=== PATIENT | female | born 1960 | race African-American/Black ===

== ENCOUNTER 2018-10-26 13:11 | Emergency (ER) | payer OTHER ==
[~2018-10-26] VITALS: Ht 170.2 cm; Wt 72.6 kg
[2018-10-26 19:06] VITALS: BP 198/105
[2018-10-26] MEDS ORDERED: cloNIDine HCL 0.1 MG TAB PO ONE (19:30)
[2018-10-26 19:42] LABS: Basophils # (auto) 0.1 uL; Basophils % (auto) 1.5 % (0.0-2.0); Eosinophils # (auto) 0.1 uL; Eosinophils % (auto) 1.4 % (0.0-7.0); Hematocrit 45.8 % (36.0-46.0); Hemoglobin 15.3 g/dL (12.2-16.2); Lymphocytes # (auto) 2.5 uL; Lymphocytes % (auto) 42.3 % (10.0-50.0); Mean Corpuscular Hemoglobin 30.3 pg (28.0-32.0); Mean Corpuscular Hgb Conc. 33.4 g/dL (32.0-36.0); Mean Corpuscular Volume 90.6 fL (80.0-100.0); Monocytes # (auto) 0.3 uL; Monocytes % (auto) 5.6 % (0.0-12.0); Neutrophils # (auto) 2.9 uL; Neutrophils % (auto) 49.2 % (37.0-80.0); Nucleated Red Blood Cells % 0.1 %; Platelet Count (auto) 209 10^3/uL (140-450); Red Blood Cells 5.06 10^6/uL (4.0-5.20)
[2018-10-26 19:50] LABS: Albumin 4.3 g/dL (3.4-5.0); Calcium 9.4 mg/dL (8.5-10.1); Potassium 3.4 mmol/L (3.5-5.1)
[2018-10-26 19:54] LABS: BUN/Creatinine Ratio 18.5; Bilirubin, Total 0.5 mg/dL (0.2-1.0)
[2018-10-26] MEDS ORDERED: diphenhdrAMINE HCL 25 MG CAP PO ONE (20:00)
[2018-10-26] MEDS ORDERED: hydrALAZINE HCL 25 MG TAB PO ONE (22:00)
[2018-10-26] MEDS ORDERED: IBUPROFEN 600 MG TAB PO ONE (22:30)
== END 2018-10-26 22:11 | disposition home or self-care (01) ==
LOC: ER 13:11
DX: I10 Essential (primary) hypertension (principal); R51 Headache; I63.9 Cerebral infarction, unspecified; G81.94 Hemiplegia, unspecified affecting left nondominant side; E78.5 Hyperlipidemia, unspecified
CPT/HCPCS: 36415; 70450; 71045; 80053; 83735; 84484; 85025; 93005; 94761

== ENCOUNTER 2021-06-30 19:31 | Inpatient (IN) | payer OTHER ==
[~2021-06-30] VITALS: Ht 33 cm; Wt 0.5 kg
[2021-06-30] MEDS ORDERED: methylPREDNISolone SOD SUCC 125 MG/2 ML VL IV ONE (20:15)
[2021-06-30] MEDS ORDERED: TEMAZEPAM 15 MG CAP PO PRN (23:30)
[2021-06-30] MEDS ORDERED: ACETAMINOPHEN 325 MG TAB PO PRN (23:30)
[2021-06-30] MEDS ORDERED: DOCUSATE SOD 100 MG CAP PO PRN (23:30)
[2021-06-30] MEDS ORDERED: ONDANSETRON HCL 4 MG/2 ML VIAL IV PRN (23:30)
[2021-06-30] MEDS ORDERED: MORPHINE SULFATE 4 MG/ML SYR/VIAL IV PRN (23:30)
[2021-06-30] MEDS ORDERED: DEXTROSE (50%) 50ML SYRG IV PRN (23:30)
[2021-06-30] MEDS ORDERED: hydrALAZINE HCL 20 MG/ML VL IV PRN (23:30)
[2021-06-30 23:58] LABS: Basophils # (auto) 0.1 10 ^3/uL (0-0.2); Basophils % (auto) 0.9 % (0.0-2.0); Eosinophils # (auto) 0 10 ^3/uL (0-0.8); Eosinophils % (auto) 0.1 % (0.0-7.0); Hematocrit 39.2 % (36.0-46.0); Hemoglobin 13.1 g/dL (12.2-16.2); Lymphocytes # (auto) 0.9 10 ^3/uL (0.4-5.4); Lymphocytes % (auto) 10.1 % (10.0-50.0); Mean Corpuscular Hemoglobin 29.1 pg (28.0-32.0); Mean Corpuscular Hgb Conc. 33.3 g/dL (32.0-36.0); Mean Corpuscular Volume 87.1 fL (80.0-100.0); Monocytes # (auto) 0.2 10 ^3/uL (0-1.3); Monocytes % (auto) 1.9 % (0.0-12.0); Neutrophils # (auto) 7.4 10 ^3/uL (1.6-8.6); Nucleated Red Blood Cells % 0.2 %; White Blood Cell 8.5 10^3/uL (4.4-10.8)
[2021-07-01 00:15] LABS: INR 1.01 (0.9-1.15); Partial Thromboplastin Time 24.8 sec (23.6-33.0)
[2021-07-01 00:17] LABS: Albumin 3.2 g/dL (3.4-5.0); Calcium 9.1 mg/dL (8.5-10.1); Magnesium 3.2 mg/dL (1.6-2.6)
[2021-07-01 00:23] LABS: Bilirubin, Total 0.5 mg/dL (0.2-1.0); Total Protein 8.2 g/dL (6.4-8.2)
[2021-07-01] MEDS ORDERED: NITROGLYCERIN 0.4 MG SL TAB SL PRN (01:00)
[2021-07-01] MEDS ORDERED: MORPHINE SULFATE INJECTION 2 MG/ML SYRG IV PRN (01:00)
[2021-07-01] MEDS: HYDROcodone-ACET 5/325MG TAB PO PRN ×2 (03:15→15:46)
[2021-07-01 04:30] VITALS: BP 138/67
[2021-07-01] MEDS: SODIUM CHLOR 0.9% PF (SALINE LOCK) 10ML VIAL/SYR IV SCH ×2 (06:00→13:03)
[2021-07-01] MEDS: HEPARIN SODIUM (PORCINE) 5000 UNITS/ML 1ML VIAL SC SCH ×2 (06:54→14:00)
[2021-07-01] MEDS: ACCU-CHEK COMFORT CURVE STRIP VI SCH ×2 (06:55→13:03)
[2021-07-01] MEDS: InsuLIN REG 1unit/0.01ml Soln (100units/ml) SC SCH ×2 (07:00→13:03)
[2021-07-01 09:49] LABS: Basophils # (auto) 0 10 ^3/uL (0-0.2); Basophils % (auto) 0.2 % (0.0-2.0); Eosinophils # (auto) 0 10 ^3/uL (0-0.8); Eosinophils % (auto) 0.1 % (0.0-7.0); Hematocrit 38.6 % (36.0-46.0); Hemoglobin 12.7 g/dL (12.2-16.2); Lymphocytes # (auto) 0.9 10 ^3/uL (0.4-5.4); Lymphocytes % (auto) 8.3 % (10.0-50.0); Mean Corpuscular Hemoglobin 28.7 pg (28.0-32.0); Mean Corpuscular Hgb Conc. 32.8 g/dL (32.0-36.0); Mean Corpuscular Volume 87.5 fL (80.0-100.0); Monocytes # (auto) 0.1 10 ^3/uL (0-1.3); Monocytes % (auto) 0.6 % (0.0-12.0); Neutrophils # (auto) 9.9 10 ^3/uL (1.6-8.6); Neutrophils % (auto) 90.8 % (37.0-80.0); Nucleated Red Blood Cells % 0.1 %; Red Blood Cells 4.41 10^6/uL (4.0-5.20); Red Cell Distribution Width 14.1 % (11.8-14.3); White Blood Cell 10.9 10^3/uL (4.4-10.8)
[2021-07-01] MEDS ORDERED: ASCORBIC ACID 500 MG TAB PO SCH (10:00)
[2021-07-01] MEDS ORDERED: ASPirin 81 mg TAB PO SCH (10:00)
[2021-07-01] MEDS ORDERED: FAMOTIDINE (10MG/ML) 2ML VL IV SCH (10:00)
[2021-07-01] MEDS ORDERED: ZINC SULFATE 220mg CAP or TAB PO SCH (10:00)
[2021-07-01] MEDS ORDERED: MULTIPLE VITAMIN TAB PO SCH (10:00)
[2021-07-01 11:22] LABS: Calcium 8.4 mg/dL (8.5-10.1); Potassium 4.2 mmol/L (3.5-5.1)
[2021-07-01 11:30] LABS: BUN/Creatinine Ratio 21.4; Bilirubin, Total 0.4 mg/dL (0.2-1.0); Total Protein 7.2 g/dL (6.4-8.2)
[2021-07-01] MEDS ORDERED: AZITHROMYCIN 250 MG TAB PO ONE (13:00)
[2021-07-01] MEDS ORDERED: FUROSEMIDE 40 MG/4 ML VIAL IV ONE (13:00)
[2021-07-01 14:26] VITALS: BP 140/57
[2021-07-01] MEDS ORDERED: InsuLIN REG 1unit/0.01ml Soln (100units/ml) SC SCH (22:00)
[2021-07-01] MEDS ORDERED: ATORVASTATIN 20 MG TAB PO SCH (22:00)
== END 2021-07-01 17:36 | disposition home or self-care (01) | DRG 145 ==
LOC: ER 19:31 → EDBD 19:31 → TELE 07-01 00:57 → WEST WING 07-01 04:15 → TELE-WESTW 07-01 05:41
PROVIDERS: ADMIT Nurse Practitioner Family; ATTEND Nurse Practitioner Family
DX: R09.1 Pleurisy (principal); E83.41 Hypermagnesemia; E11.65 Type 2 diabetes mellitus with hyperglycemia; E78.5 Hyperlipidemia, unspecified; I10 Essential (primary) hypertension; R79.89 Other specified abnormal findings of blood chemistry; Z20.822 Contact with and (suspected) exposure to COVID-19; I44.7 Left bundle-branch block, unspecified; J20.9 Acute bronchitis, unspecified; Z82.49 Family history of ischemic heart disease and other diseases of the circulatory system; I25.2 Old myocardial infarction; Z82.5 Family history of asthma and other chronic lower respiratory diseases; Z83.3 Family history of diabetes mellitus; Z86.73 Personal history of transient ischemic attack (TIA), and cerebral infarction without residual deficits; R77.8 Other specified abnormalities of plasma proteins
CPT/HCPCS: 36415; 71045; 80053; 80061; 82962; 83036; 83605; 83735; 83880; 84484; 85025; 85379; 85610; 85730; 87040; 87426; 93005; 96372; 96374; 96375; G0378; J1815; J3490

== ENCOUNTER 2021-07-14 12:58 | Emergency (ER) | payer OTHER ==
[~2021-07-14] VITALS: Ht 170.2 cm; Wt 66.7 kg
[2021-07-14 15:04] VITALS: BP 153/78
[2021-07-14] MEDS ORDERED: traMADol HCL 50 MG TAB PO ONE (17:00)
== END 2021-07-14 16:50 | disposition home or self-care (01) ==
LOC: EDBD 12:58 → ER 12:58 → EDSEX 12:58 → ER 16:50
DX: J20.9 Acute bronchitis, unspecified (principal); I10 Essential (primary) hypertension; E11.9 Type 2 diabetes mellitus without complications; E78.5 Hyperlipidemia, unspecified; F17.210 Nicotine dependence, cigarettes, uncomplicated; Z86.73 Personal history of transient ischemic attack (TIA), and cerebral infarction without residual deficits
CPT/HCPCS: 71045

== ENCOUNTER 2023-03-22 13:39 | Inpatient (IN) | payer OTHER ==
[~2023-03-22] VITALS: Ht 170.2 cm; Wt 65.6 kg
[2023-03-22] MEDS ORDERED: ACETAMINOPHEN 325 MG TAB PO ONE (14:45)
[2023-03-22] MEDS ORDERED: ASPirin 81 mg TAB PO ONE (14:45)
[2023-03-22] MEDS ORDERED: ONDANSETRON HCL 4 MG/2 ML VIAL IV ONE (14:45)
[2023-03-22] MEDS ORDERED: SODIUM CHLORIDE 0.9% 1,000 ML IV ONE (14:45)
[2023-03-22] MEDS ORDERED: PANTOPRAZOLE 40 MG/10 ML VIAL INJ IV ONE (14:45)
[2023-03-22 15:31] LABS: Basophils # (auto) 0.1 10 ^3/uL (0-0.2); Basophils % (auto) 1.2 % (0.0-2.0); Eosinophils # (auto) 0 10 ^3/uL (0-0.8); Eosinophils % (auto) 0.6 % (0.0-7.0); Hematocrit 40.7 % (36.0-46.0); Hemoglobin 13.5 g/dL (12.2-16.2); Lymphocytes # (auto) 2.4 10 ^3/uL (0.4-5.4); Lymphocytes % (auto) 31.8 % (10.0-50.0); Mean Corpuscular Hemoglobin 28.8 pg (28.0-32.0); Mean Corpuscular Hgb Conc. 33.3 g/dL (32.0-36.0); Mean Corpuscular Volume 86.6 fL (80.0-100.0); Monocytes # (auto) 0.5 10 ^3/uL (0-1.3); Neutrophils # (auto) 4.4 10 ^3/uL (1.6-8.6); Neutrophils % (auto) 59.4 % (37.0-80.0); Red Blood Cells 4.69 10^6/uL (4.0-5.20); Red Cell Distribution Width 14.7 % (11.8-14.3); White Blood Cell 7.4 10^3/uL (4.4-10.8)
[2023-03-22 15:40] LABS: Alanine Aminotransferase 19 U/L (7-40); Albumin 4.6 g/dL (3.2-4.8); Alkaline Phosphatase 88 U/L (46-116); Anion Gap 7.9 (5-15); Aspartate Aminotransferase 24 U/L (13-40); BUN/Creatinine Ratio 7.8 (10.0-20.0); Bilirubin, Total 0.5 mg/dL (0.2-1.0); Blood Alcohol < 3.0 mg/dL (<10); Blood Urea Nitrogen 11 mg/dL (9-23); Calcium 9.5 mg/dL (8.7-10.4); Carbon Dioxide 21.1 mmol/L (20-30); Chloride 109 mmol/L (98-107); Glucose 143 mg/dL (74-106); Magnesium 2.2 mg/dL (1.6-2.6); Potassium 3.3 mmol/L (3.5-5.1); Sodium 138 mmol/L (136-145); Total Protein 7.6 g/dL (5.7-8.2)
[2023-03-22 15:45] LABS: INR 1.05 (0.9-1.15); Partial Thromboplastin Time 26.9 SEC (24.5-34.5)
[2023-03-22 17:44] VITALS: PULSE 20; RESP 20; O2SAT 96
[2023-03-22] MEDS ORDERED: FUROSEMIDE 40 MG/4 ML VIAL IV ONE (18:00)
[2023-03-22] MEDS ORDERED: POTASSIUM CHL 20 Meq TABLET PO ONE (18:00)
[2023-03-22] MEDS ORDERED: MAGNESIUM OXIDE 400 MG TAB PO ONE (18:00)
[2023-03-22] MEDS ORDERED: NITROGLYCERIN 0.4 MG SL TAB SL PRN (19:30)
[2023-03-22] MEDS ORDERED: ONDANSETRON HCL 4 MG/2 ML VIAL IV PRN (19:30)
[2023-03-22] MEDS ORDERED: ACETAMINOPHEN 325 MG TAB PO PRN (19:30)
[2023-03-22] MEDS ORDERED: TEMAZEPAM 15 MG CAP PO PRN (19:30)
[2023-03-22 19:45] LABS: Urine Bacteria FEW /hpf (None Seen); Urine Blood 1+ /uL (Negative); Urine Clarity HAZY (Clear); Urine Color Yellow (Yellow); Urine Hyaline Cast FEW /lpf (0 - 2); Urine Mucus FEW (None Seen); Urine Protein, UAD 3+ (Negative); Urine Specific Gravity 1.021 (1.001-1.035); Urine Urobilinogen Normal (Negative); Urine WBC 5 /hpf (0 - 5); Urine pH 6.5 (5.0-8.0)
[2023-03-22 19:51] LABS: Amphetamine Screen, Urine Neg (NEGATIVE); Barbiturate Scree,Urine Neg (NEGATIVE); Benzodiazephine Screen, Urine Neg (NEGATIVE)
[2023-03-22 19:52] LABS: Cannabinoid Screen, Urine Pos (NEGATIVE); Cocaine Screen, Urine Neg (NEGATIVE); Opiate Scree,Urine Neg (NEGATIVE); Phencyclidine Screen, Urine Neg (NEGATIVE)
[2023-03-22 20:25] VITALS: PULSE 49; RESP 19; O2SAT 97
[2023-03-22] MEDS: SODIUM CHLORIDE 0.9% 1,000 ML IV SCH (23:00)
[2023-03-23] VITALS (7 sets, daily range): BP systolic 100–117; BP diastolic 51–60; PULSE 46–64; RESP 16–20; TEMP 97.4–98.3; O2SAT 90–98
[2023-03-23] MEDS ORDERED: NITROGLYCERIN 0.4MG/HR TOPICAL PATCH TD ONE (00:45)
[2023-03-23] MEDS: SODIUM CHLORIDE 0.9% 1,000 ML IV SCH ×2 (05:21→13:30)
[2023-03-23 05:26] LABS: Basophils # (auto) 0.1 10 ^3/uL (0-0.2); Basophils % (auto) 2.5 % (0.0-2.0); Eosinophils # (auto) 0 10 ^3/uL (0-0.8); Eosinophils % (auto) 0.7 % (0.0-7.0); Hematocrit 38.5 % (36.0-46.0); Hemoglobin 12.6 g/dL (12.2-16.2); Lymphocytes # (auto) 2.1 10 ^3/uL (0.4-5.4); Lymphocytes % (auto) 35.9 % (10.0-50.0); Mean Corpuscular Hemoglobin 28.4 pg (28.0-32.0); Mean Corpuscular Hgb Conc. 32.7 g/dL (32.0-36.0); Mean Corpuscular Volume 86.7 fL (80.0-100.0); Monocytes # (auto) 0.3 10 ^3/uL (0-1.3); Monocytes % (auto) 5.9 % (0.0-12.0); Neutrophils # (auto) 3.2 10 ^3/uL (1.6-8.6); Nucleated Red Blood Cells % 0.1 %; Red Blood Cells 4.44 10^6/uL (4.0-5.20); Red Cell Distribution Width 14.7 % (11.8-14.3); White Blood Cell 5.8 10^3/uL (4.4-10.8)
[2023-03-23 08:26] LABS: Alanine Aminotransferase 16 U/L (7-40); Alkaline Phosphatase 79 U/L (46-116); Anion Gap 9.6 (5-15); Carbon Dioxide 20.4 mmol/L (20-30); Chloride 110 mmol/L (98-107); Potassium 3.8 mmol/L (3.5-5.1); Sodium 140 mmol/L (136-145)
[2023-03-23 08:29] LABS: Glucose 137 mg/dL (74-106)
[2023-03-23 08:30] LABS: BUN/Creatinine Ratio 8.6 (10.0-20.0); Blood Urea Nitrogen 12 mg/dL (9-23)
[2023-03-23 08:31] LABS: Albumin 4.4 g/dL (3.2-4.8); Aspartate Aminotransferase 20 U/L (13-40)
[2023-03-23 08:32] LABS: Bilirubin, Total 0.6 mg/dL (0.2-1.0); Total Protein 7.2 g/dL (5.7-8.2)
[2023-03-23] MEDS ORDERED: ENOXAPARIN SOD 40 MG/0.4 ML SYRINGE SC SCH (10:00)
[2023-03-23] MEDS: HYDROcodone-ACET 5/325MG TAB PO PRN ×2 (10:27→19:25)
[2023-03-23] MEDS: DOCUSATE SOD 100 MG CAP PO PRN (10:31)
[2023-03-23] MEDS ORDERED: FUROSEMIDE 40 MG/4 ML VIAL IV ONE (13:30)
[2023-03-23] MEDS ORDERED: ATROPINE SULF 1 MG/10ml SYR IV PRN (14:45)
[2023-03-23 15:52] LABS: Triglycerides 112 mg/dL (< 150)
[2023-03-23 15:53] LABS: LDL Cholesterol 58 mg/dL (< 100)
[2023-03-23 15:54] LABS: Cholesterol 160 mg/dL (< 200); HDL Cholesterol 75 mg/dL (40-59)
[2023-03-23] MEDS: ATROPINE SULF 1 MG/10ml SYR IV PRN (16:46)
[2023-03-23] MEDS: ATORVASTATIN 20 MG TAB PO SCH (21:52)
[2023-03-24] VITALS (7 sets, daily range): BP systolic 140–213; BP diastolic 55–79; PULSE 47–56; RESP 18–19; TEMP 97.4–98.6; O2SAT 95–99
[2023-03-24] MEDS: ATROPINE SULF 1 MG/10ml SYR IV PRN (03:14)
[2023-03-24] MEDS: HYDROcodone-ACET 5/325MG TAB PO PRN ×4 (03:45→20:19)
[2023-03-24] MEDS: NIFEdipine 10 MG CAP PO SCH ×2 (09:24→20:17)
[2023-03-24] MEDS ORDERED: hydrALAZINE HCL 25 MG TAB PO SCH (10:00)
[2023-03-24] MEDS ORDERED: ALPRAZolam 0.5 MG TAB PO PRN (12:00)
[2023-03-24] MEDS ORDERED: diphenhdrAMINE HCL 50 MG/1 ML VL IV PRN (12:00)
[2023-03-24] MEDS: PANTOPRAZOLE 40 MG/10 ML VIAL INJ IV SCH (12:21)
[2023-03-24] MEDS: hydrALAZINE HCL 20 MG/ML VL IV PRN ×2 (12:21→17:21)
[2023-03-24] MEDS: SODIUM CHLORIDE 0.9% 1,000 ML IV SCH (13:27)
[2023-03-24] MEDS: hydrALAZINE HCL 25 MG TAB PO SCH ×2 (13:28→21:25)
[2023-03-24] MEDS: DOCUSATE SOD 100 MG CAP PO PRN (15:08)
[2023-03-24] MEDS: FUROSEMIDE 20 MG/2 ML VIAL IV SCH (17:22)
[2023-03-24] MEDS: ATORVASTATIN 20 MG TAB PO SCH (20:17)
[2023-03-24] MEDS: TRIAMCINOLONE ACET0.5% TOPICAL CRE 15GM TOP SCH (21:27)
[2023-03-24 22:44] LABS: Alanine Aminotransferase 11 U/L (7-40); Alkaline Phosphatase 76 U/L (46-116); Anion Gap 4.7 (5-15); Aspartate Aminotransferase 15 U/L (13-40); Blood Urea Nitrogen 12 mg/dL (9-23); Carbon Dioxide 25.3 mmol/L (20-30); Chloride 109 mmol/L (98-107); Glucose 167 mg/dL (74-106); Potassium 3.3 mmol/L (3.5-5.1); Sodium 139 mmol/L (136-145)
[2023-03-24 22:45] LABS: Bilirubin, Total 0.6 mg/dL (0.2-1.0); Total Protein 6.5 g/dL (5.7-8.2)
[2023-03-25] VITALS (12 sets, daily range): BP systolic 115–215; BP diastolic 50–92; PULSE 51–93; RESP 13–20; TEMP 98.1–98.4; O2SAT 93–97
[2023-03-25] MEDS: hydrALAZINE HCL 20 MG/ML VL IV PRN ×2 (04:36→11:12)
[2023-03-25] MEDS: hydrALAZINE HCL 25 MG TAB PO SCH ×3 (06:00→22:42)
[2023-03-25] MEDS ORDERED: hydrALAZINE HCL 20 MG/ML VL IV ONE (06:15)
[2023-03-25 06:34] LABS: Anion Gap 7.3 (5-15); Carbon Dioxide 22.7 mmol/L (20-30); Chloride 110 mmol/L (98-107); Potassium 3.5 mmol/L (3.5-5.1); Sodium 140 mmol/L (136-145)
[2023-03-25 06:40] LABS: BUN/Creatinine Ratio 7.1 (10.0-20.0); Blood Urea Nitrogen 8 mg/dL (9-23); Glucose 140 mg/dL (74-106); INR 0.98 (0.9-1.15); Prothrombin Time 10.3 sec (9.3-11.8)
[2023-03-25 06:52] LABS: Basophils # (auto) 0 10 ^3/uL (0-0.2); Basophils % (auto) 0.6 % (0.0-2.0); Eosinophils # (auto) 0 10 ^3/uL (0-0.8); Eosinophils % (auto) 0.4 % (0.0-7.0); Hematocrit 43.6 % (36.0-46.0); Hemoglobin 13.9 g/dL (12.2-16.2); Lymphocytes # (auto) 2.7 10 ^3/uL (0.4-5.4); Mean Corpuscular Hemoglobin 28.2 pg (28.0-32.0); Mean Corpuscular Hgb Conc. 31.9 g/dL (32.0-36.0); Mean Corpuscular Volume 88.4 fL (80.0-100.0); Monocytes # (auto) 0.5 10 ^3/uL (0-1.3); Monocytes % (auto) 7.2 % (0.0-12.0); Neutrophils # (auto) 3.9 10 ^3/uL (1.6-8.6); Neutrophils % (auto) 53.8 % (37.0-80.0); Nucleated Red Blood Cells % 0.1 %; Red Blood Cells 4.93 10^6/uL (4.0-5.20); Red Cell Distribution Width 14.9 % (11.8-14.3); White Blood Cell 7.2 10^3/uL (4.4-10.8)
[2023-03-25 06:56] LABS: Magnesium 1.8 mg/dL (1.6-2.6)
[2023-03-25] MEDS ORDERED: VANCOMYCIN 1GM/250ML 250 ML IV ONE (07:15)
[2023-03-25] MEDS ORDERED: LIDOCAINE 2%HCL (LOCAL ANESTH.) INJ 20ML MDV ONE (07:52)
[2023-03-25] MEDS ORDERED: MIDAZOLAM HCL 2MG/2ML 2ml VIAL (1mg/ml) ONE (07:59)
[2023-03-25] MEDS ORDERED: VANCOMYCIN HCL 1000 MG VL ONE (07:59)
[2023-03-25] MEDS ORDERED: fentaNYL CITRATE 100 MCG/2 ML VL ONE (07:59)
[2023-03-25] MEDS ORDERED: IODIXANOL 320MG/ML 100ML BTL IV ONE (08:00)
[2023-03-25] MEDS ORDERED: EPINEPHrine HCL 1 MG/10 ML SYRG ONE (08:46)
[2023-03-25] MEDS ORDERED: ATROPINE SULF 1 MG/10ml SYR ONE (08:46)
[2023-03-25] MEDS ORDERED: diphenhdrAMINE HCL 50 MG/1 ML VL ONE (09:15)
[2023-03-25] MEDS: TRIAMCINOLONE ACET0.5% TOPICAL CRE 15GM TOP SCH ×2 (10:00→22:00)
[2023-03-25] MEDS: HYDROcodone-ACET 5/325MG TAB PO PRN ×3 (11:08→22:43)
[2023-03-25] MEDS ORDERED: IOHEXOL 350 MG/ML 100ML IJ ONE (11:57)
[2023-03-25] MEDS: NIFEdipine 10 MG CAP PO SCH ×2 (12:33→22:44)
[2023-03-25] MEDS: FUROSEMIDE 20 MG/2 ML VIAL IV SCH (12:33)
[2023-03-25] MEDS: PANTOPRAZOLE 40 MG/10 ML VIAL INJ IV SCH (12:33)
[2023-03-25] MEDS: SODIUM CHLORIDE 0.9% 1,000 ML IV SCH (13:30)
[2023-03-25] MEDS: VANCOMYCIN 1GM/250ML 250 ML IV SCH (18:07)
[2023-03-25] MEDS: ATORVASTATIN 20 MG TAB PO SCH (22:43)
[2023-03-25] MEDS: DOXYCYCLINE 100 MG TAB/CAP PO SCH (22:43)
[2023-03-26 05:00] VITALS: BP 118/72; PULSE 87; RESP 17; TEMP 98.1; O2SAT 99
[2023-03-26] MEDS: hydrALAZINE HCL 25 MG TAB PO SCH ×3 (06:12→22:43)
[2023-03-26] MEDS: VANCOMYCIN 1GM/250ML 250 ML IV SCH (06:39)
[2023-03-26 08:00] VITALS: PULSE 85
[2023-03-26 09:00] VITALS: BP 189/84; PULSE 96; RESP 20; TEMP 98; O2SAT 98
[2023-03-26] MEDS: PANTOPRAZOLE 40 MG/10 ML VIAL INJ IV SCH ×2 (09:40→14:34)
[2023-03-26] MEDS: HYDROcodone-ACET 5/325MG TAB PO PRN ×4 (09:41→22:44)
[2023-03-26] MEDS: NIFEdipine 10 MG CAP PO SCH ×2 (09:42→22:45)
[2023-03-26] MEDS: DOXYCYCLINE 100 MG TAB/CAP PO SCH ×2 (09:42→22:44)
[2023-03-26] MEDS: FUROSEMIDE 20 MG/2 ML VIAL IV SCH ×2 (09:44→14:35)
[2023-03-26] MEDS: TRIAMCINOLONE ACET0.5% TOPICAL CRE 15GM TOP SCH ×2 (12:17→22:00)
[2023-03-26] MEDS: DOCUSATE SOD 100 MG CAP PO PRN (14:35)
[2023-03-26] MEDS: SODIUM CHLORIDE 0.9% 1,000 ML IV SCH (14:47)
[2023-03-26 20:00] VITALS: BP 183/84; PULSE 78; PULSE 81; RESP 16; TEMP 97.4; O2SAT 99
[2023-03-26 22:00] VITALS: BP 183/84; PULSE 91; RESP 16; TEMP 97.4; O2SAT 99
[2023-03-26] MEDS: ATORVASTATIN 20 MG TAB PO SCH (22:44)
[2023-03-27] VITALS (8 sets, daily range): BP systolic 118–180; BP diastolic 57–77; PULSE 68–86; RESP 15–18; TEMP 98–98.8; O2SAT 94–97
[2023-03-27] MEDS: hydrALAZINE HCL 20 MG/ML VL IV PRN ×2 (01:16→09:54)
[2023-03-27] MEDS: HYDROcodone-ACET 5/325MG TAB PO PRN ×3 (05:58→19:24)
[2023-03-27] MEDS: hydrALAZINE HCL 25 MG TAB PO SCH ×3 (05:59→22:17)
[2023-03-27 06:09] LABS: INR 1.05 (0.9-1.15); Partial Thromboplastin Time 29.2 SEC (24.5-34.5)
[2023-03-27] MEDS ORDERED: fentaNYL CITRATE 100 MCG/2 ML VL IV ONE (08:15)
[2023-03-27] MEDS ORDERED: LIDOCAINE VISCOUS 2% 15ML UD PO ONE (08:15)
[2023-03-27] MEDS ORDERED: MIDAZOLAM HCL 2MG/2ML 2ml VIAL (1mg/ml) IV ONE (08:15)
[2023-03-27] MEDS ORDERED: METOPROLOL TARTRATE 1MG/1ML-5ML VIAL IV ONE ×3 (10:40→11:40)
[2023-03-27] MEDS ORDERED: METOCLOPRAMIDE HCL 5MG/ml INJ 2ml VIAL IV ONE (11:45)
[2023-03-27] MEDS: NIFEdipine 10 MG CAP PO SCH ×2 (11:49→22:17)
[2023-03-27] MEDS: PANTOPRAZOLE 40 MG/10 ML VIAL INJ IV SCH (12:30)
[2023-03-27] MEDS: FUROSEMIDE 20 MG/2 ML VIAL IV SCH (12:31)
[2023-03-27] MEDS: DOXYCYCLINE 100 MG TAB/CAP PO SCH ×2 (12:31→22:16)
[2023-03-27] MEDS: TRIAMCINOLONE ACET0.5% TOPICAL CRE 15GM TOP SCH ×2 (12:32→22:32)
[2023-03-27] MEDS: SODIUM CHLORIDE 0.9% 1,000 ML IV SCH (14:35)
[2023-03-27] MEDS: DOCUSATE SOD 100 MG CAP PO PRN (17:55)
[2023-03-27] MEDS: LACTULOSE 20Gm/30ML SOLN PO SCH (22:16)
[2023-03-27] MEDS: METOPROLOL TARTRATE 25 MG TAB PO SCH (22:16)
[2023-03-27] MEDS: ATORVASTATIN 20 MG TAB PO SCH (22:29)
[2023-03-28] VITALS (7 sets, daily range): BP systolic 126–169; BP diastolic 53–89; PULSE 65–71; RESP 17–19; TEMP 97.8–98.5; O2SAT 94–98
[2023-03-28] MEDS: LACTULOSE 20Gm/30ML SOLN PO SCH ×3 (06:35→23:23)
[2023-03-28] MEDS: hydrALAZINE HCL 25 MG TAB PO SCH ×3 (06:35→23:24)
[2023-03-28] MEDS: DOXYCYCLINE 100 MG TAB/CAP PO SCH ×2 (09:04→23:24)
[2023-03-28] MEDS: METOPROLOL TARTRATE 25 MG TAB PO SCH ×2 (09:05→23:26)
[2023-03-28] MEDS: TRIAMCINOLONE ACET0.5% TOPICAL CRE 15GM TOP SCH ×2 (11:04→23:27)
[2023-03-28] MEDS: NIFEdipine 10 MG CAP PO SCH ×2 (11:58→23:26)
[2023-03-28] MEDS: SODIUM CHLORIDE 0.9% 1,000 ML IV SCH (14:30)
[2023-03-28] MEDS: FUROSEMIDE 20 MG/2 ML VIAL IV SCH (14:31)
[2023-03-28] MEDS: PANTOPRAZOLE 40 MG/10 ML VIAL INJ IV SCH (14:31)
[2023-03-28] MEDS: HYDROcodone-ACET 5/325MG TAB PO PRN ×2 (15:56→20:23)
[2023-03-28] MEDS: ATORVASTATIN 20 MG TAB PO SCH (23:25)
[2023-03-29] VITALS (12 sets, daily range): BP systolic 117–184; BP diastolic 65–75; PULSE 65–75; RESP 14–19; TEMP 97.5–98.4; O2SAT 94–100
[2023-03-29] MEDS: hydrALAZINE HCL 25 MG TAB PO SCH ×3 (06:00→22:52)
[2023-03-29] MEDS: LACTULOSE 20Gm/30ML SOLN PO SCH ×3 (06:00→22:55)
[2023-03-29 06:40] LABS: Alanine Aminotransferase 23 U/L (7-40); Albumin 3.8 g/dL (3.2-4.8); Alkaline Phosphatase 68 U/L (46-116); Anion Gap 7 (5-15); Aspartate Aminotransferase 20 U/L (13-40); BUN/Creatinine Ratio 10.2 (10.0-20.0); Blood Urea Nitrogen 11 mg/dL (9-23); Calcium 9.1 mg/dL (8.7-10.4); Carbon Dioxide 26 mmol/L (20-30); Chloride 107 mmol/L (98-107); Glucose 135 mg/dL (74-106); Sodium 140 mmol/L (136-145)
[2023-03-29 06:41] LABS: Bilirubin, Total 0.4 mg/dL (0.2-1.0); Total Protein 6.2 g/dL (5.7-8.2)
[2023-03-29 08:13] LABS: Basophils # (auto) 0.1 10 ^3/uL (0-0.2); Eosinophils # (auto) 0.1 10 ^3/uL (0-0.8); Eosinophils % (auto) 1.7 % (0.0-7.0); Hematocrit 38.2 % (36.0-46.0); Hemoglobin 12.9 g/dL (12.2-16.2); Lymphocytes # (auto) 2.4 10 ^3/uL (0.4-5.4); Lymphocytes % (auto) 44.9 % (10.0-50.0); Mean Corpuscular Hemoglobin 29.9 pg (28.0-32.0); Mean Corpuscular Hgb Conc. 33.8 g/dL (32.0-36.0); Mean Corpuscular Volume 88.4 fL (80.0-100.0); Monocytes # (auto) 0.4 10 ^3/uL (0-1.3); Monocytes % (auto) 8.4 % (0.0-12.0); Neutrophils # (auto) 2.3 10 ^3/uL (1.6-8.6); Red Blood Cells 4.33 10^6/uL (4.0-5.20); Red Cell Distribution Width 14.3 % (11.8-14.3); White Blood Cell 5.2 10^3/uL (4.4-10.8)
[2023-03-29] MEDS: METOPROLOL TARTRATE 25 MG TAB PO SCH ×2 (08:32→22:53)
[2023-03-29] MEDS: DOXYCYCLINE 100 MG TAB/CAP PO SCH ×2 (08:32→22:52)
[2023-03-29] MEDS: FUROSEMIDE 20 MG/2 ML VIAL IV SCH (08:33)
[2023-03-29] MEDS: PANTOPRAZOLE 40 MG/10 ML VIAL INJ IV SCH (08:33)
[2023-03-29] MEDS: NIFEdipine 10 MG CAP PO SCH ×2 (08:44→22:51)
[2023-03-29] MEDS: TRIAMCINOLONE ACET0.5% TOPICAL CRE 15GM TOP SCH ×2 (10:00→22:55)
[2023-03-29] MEDS ORDERED: ANGIOMAX 250 MG VIAL IV ONE (10:17)
[2023-03-29] MEDS ORDERED: IODIXANOL 320MG/ML 100ML BTL IV ONE (10:18)
[2023-03-29] MEDS ORDERED: fentaNYL CITRATE 100 MCG/2 ML VL ONE (10:18)
[2023-03-29] MEDS ORDERED: SODIUM CHL 0.9% 0 ML ONE (10:18)
[2023-03-29] MEDS ORDERED: MIDAZOLAM HCL 2MG/2ML 2ml VIAL (1mg/ml) ONE (10:18)
[2023-03-29] MEDS ORDERED: LIDOCAINE 2%HCL (LOCAL ANESTH.) INJ 20ML MDV ONE (10:18)
[2023-03-29] MEDS ORDERED: hydrALAZINE HCL 20 MG/ML VL ONE ×2 (10:58→11:34)
[2023-03-29] MEDS ORDERED: METOPROLOL TARTRATE 1MG/1ML-5ML VIAL IV ONE (12:09)
[2023-03-29] MEDS ORDERED: NITROGLYCERIN 0.4MG/DOSE SPRAY 4.9GM ONE (12:16)
[2023-03-29 13:23] LABS: Large Platelets FEW; Platelet Estimate Adequate
[2023-03-29] MEDS: SODIUM CHLORIDE 0.9% 1,000 ML IV SCH (13:30)
[2023-03-29] MEDS: HYDROcodone-ACET 5/325MG TAB PO PRN ×2 (15:02→22:53)
[2023-03-29] MEDS: ATORVASTATIN 20 MG TAB PO SCH (22:53)
[2023-03-30 04:42] VITALS: BP 135/56; PULSE 67; RESP 17; TEMP 97.8; O2SAT 95
[2023-03-30] MEDS: hydrALAZINE HCL 25 MG TAB PO SCH ×2 (06:00→14:09)
[2023-03-30] MEDS: LACTULOSE 20Gm/30ML SOLN PO SCH ×2 (06:00→14:09)
[2023-03-30 08:00] VITALS: PULSE 65; PULSE 74; O2SAT 100
[2023-03-30 09:00] VITALS: BP 130/53; PULSE 74; RESP 22; TEMP 98.5; O2SAT 100
[2023-03-30] MEDS: PANTOPRAZOLE 40 MG/10 ML VIAL INJ IV SCH (09:22)
[2023-03-30] MEDS: DOXYCYCLINE 100 MG TAB/CAP PO SCH (09:24)
[2023-03-30] MEDS: METOPROLOL TARTRATE 25 MG TAB PO SCH (09:25)
[2023-03-30] MEDS: HYDROcodone-ACET 5/325MG TAB PO PRN ×2 (09:25→14:09)
[2023-03-30] MEDS: FUROSEMIDE 20 MG/2 ML VIAL IV SCH (09:25)
[2023-03-30] MEDS ORDERED: MET25T PO (09:46)
[2023-03-30] MEDS ORDERED: NIFE1TAB30 PO (09:46)
[2023-03-30] MEDS ORDERED: DOX100T PO (09:46)
[2023-03-30] MEDS ORDERED: ATOR20TA50 PO (09:46)
[2023-03-30] MEDS ORDERED: HYDR-5052 PO (09:46)
[2023-03-30] MEDS ORDERED: FURO1TAB33 PO (09:47)
[2023-03-30] MEDS ORDERED: TRI05TP TOP (10:07)
[2023-03-30] MEDS: NIFEdipine 10 MG CAP PO SCH (12:02)
[2023-03-30] MEDS: TRIAMCINOLONE ACET0.5% TOPICAL CRE 15GM TOP SCH (12:23)
[2023-03-30 13:18] VITALS: BP 170/59; PULSE 65; RESP 20; TEMP 98.5; O2SAT 98
[2023-03-30 13:24] LABS: Basophils # (auto) 0.1 10 ^3/uL (0-0.2); Eosinophils # (auto) 0 10 ^3/uL (0-0.8); Eosinophils % (auto) 0.6 % (0.0-7.0); Hematocrit 40.2 % (36.0-46.0); Hemoglobin 13.3 g/dL (12.2-16.2); Lymphocytes # (auto) 2.4 10 ^3/uL (0.4-5.4); Lymphocytes % (auto) 36.4 % (10.0-50.0); Mean Corpuscular Volume 87.7 fL (80.0-100.0); Monocytes # (auto) 0.4 10 ^3/uL (0-1.3); Monocytes % (auto) 6.3 % (0.0-12.0); Neutrophils # (auto) 3.7 10 ^3/uL (1.6-8.6); Neutrophils % (auto) 55.7 % (37.0-80.0); Nucleated Red Blood Cells % 0.1 %; Red Blood Cells 4.58 10^6/uL (4.0-5.20); Red Cell Distribution Width 14.6 % (11.8-14.3); White Blood Cell 6.7 10^3/uL (4.4-10.8)
[2023-03-30 13:30] LABS: Chloride 105 mmol/L (98-107); Potassium 3.2 mmol/L (3.5-5.1); Sodium 136 mmol/L (136-145)
[2023-03-30] MEDS: SODIUM CHLORIDE 0.9% 1,000 ML IV SCH (13:30)
[2023-03-30 13:31] LABS: Anion Gap 6 (5-15); Calcium 9.1 mg/dL (8.5-10.1); Carbon Dioxide 25 mmol/L (20-30)
[2023-03-30 13:36] LABS: BUN/Creatinine Ratio 11.2 (10.0-20.0); Blood Urea Nitrogen 14 mg/dL (9-23); Glucose 213 mg/dL (74-106)
[2023-03-30] MEDS ORDERED: POTASSIUM CHL 20 Meq TABLET PO ONE (14:30)
[2023-03-30 15:25] VITALS: BP 122/63; PULSE 65; RESP 20; TEMP 98.5; O2SAT 98
[2023-03-30 17:24] VITALS: BP 100/52; PULSE 65; RESP 19; TEMP 97.7; O2SAT 98
== END 2023-03-30 17:50 | disposition home or self-care (01) | DRG 171 ==
LOC: EDBD 13:39 → ER 13:39 → TELE 19:27 → TELE-CENTR 03-23 09:30
PROVIDERS: ADMIT Nurse Practitioner; ATTEND Nurse Practitioner
PROC: 02H63JZ Insertion of Pacemaker Lead into Right Atrium, Percutaneous Approach (ICD-10-PCS; principal; 2023-03-25)
PROC: 0JH606Z Insertion of Pacemaker, Dual Chamber into Chest Subcutaneous Tissue and Fascia, Open Approach (ICD-10-PCS; 2023-03-25)
PROC: 02HK3JZ Insertion of Pacemaker Lead into Right Ventricle, Percutaneous Approach (ICD-10-PCS; 2023-03-25)
PROC: B5171ZZ Fluoroscopy of Left Subclavian Vein using Low Osmolar Contrast (ICD-10-PCS; 2023-03-25)
PROC: B24BZZ4 Ultrasonography of Heart with Aorta, Transesophageal (ICD-10-PCS; 2023-03-27)
PROC: 4A023N8 Measurement of Cardiac Sampling and Pressure, Bilateral, Percutaneous Approach (ICD-10-PCS; 2023-03-29)
PROC: B211YZZ Fluoroscopy of Multiple Coronary Arteries using Other Contrast (ICD-10-PCS; 2023-03-29)
PROC: B215YZZ Fluoroscopy of Left Heart using Other Contrast (ICD-10-PCS; 2023-03-29)
PROC: B310YZZ Fluoroscopy of Thoracic Aorta using Other Contrast (ICD-10-PCS; 2023-03-29)
DX: I44.2 Atrioventricular block, complete (principal); N17.0 Acute kidney failure with tubular necrosis; I71.00 Dissection of unspecified site of aorta; I16.1 Hypertensive emergency; I24.8 Other forms of acute ischemic heart disease; E11.22 Type 2 diabetes mellitus with diabetic chronic kidney disease; I50.32 Chronic diastolic (congestive) heart failure; E78.5 Hyperlipidemia, unspecified; N18.9 Chronic kidney disease, unspecified; I13.0 Hypertensive heart and chronic kidney disease with heart failure and stage 1 through stage 4 chronic kidney disease, or unspecified chronic kidney disease; R00.1 Bradycardia, unspecified; F17.210 Nicotine dependence, cigarettes, uncomplicated; E87.6 Hypokalemia; F12.10 Cannabis abuse, uncomplicated; I08.0 Rheumatic disorders of both mitral and aortic valves; Z82.3 Family history of stroke; Z82.49 Family history of ischemic heart disease and other diseases of the circulatory system; Z82.5 Family history of asthma and other chronic lower respiratory diseases; Z83.3 Family history of diabetes mellitus; Z86.73 Personal history of transient ischemic attack (TIA), and cerebral infarction without residual deficits; Z91.199 Patient's noncompliance with other medical treatment and regimen due to unspecified reason; I25.2 Old myocardial infarction; Z79.01 Long term (current) use of anticoagulants; Z88.5 Allergy status to narcotic agent
CPT/HCPCS: 33208; 36415; 71045; 71275; 75820; 80048; 80053; 80061; 80307; 80320; 81001; 83605; 83735; 83880; 84443; 84484; 85025; 85379; 85610; 85730; 86850; 86900; 86901; 93005; 93306; 93312; 93460; 93567; 96374; 96375; 99152; 99153; 99291; C1894; C9113; G0378; J2250; J2405; Q9967

== ENCOUNTER 2023-05-26 08:34 | Inpatient (IN) | payer OTHER ==
[~2023-05-26] VITALS: Ht 167.6 cm; Wt 73.0 kg
[~2023-05-26 08:34] MED LIST: ATOR20TA50 PO; DOX100T PO; FURO1TAB33 PO; HYDR-5052 PO; MET25T PO; NIFE1TAB30 PO; TRI05TP TOP
[2023-05-26 12:03] LABS: Basophils # (auto) 0.1 10 ^3/uL (0-0.2); Basophils % (auto) 1.3 % (0.0-2.0); Eosinophils # (auto) 0.1 10 ^3/uL (0-0.8); Eosinophils % (auto) 1.3 % (0.0-7.0); Hematocrit 51.2 % (36.0-46.0); Hemoglobin 16.9 g/dL (12.2-16.2); Lymphocytes # (auto) 2.9 10 ^3/uL (0.4-5.4); Lymphocytes % (auto) 33.9 % (10.0-50.0); Mean Corpuscular Hemoglobin 28.8 pg (28.0-32.0); Mean Corpuscular Hgb Conc. 32.9 g/dL (32.0-36.0); Mean Corpuscular Volume 87.5 fL (80.0-100.0); Monocytes # (auto) 0.3 10 ^3/uL (0-1.3); Monocytes % (auto) 3.4 % (0.0-12.0); Neutrophils # (auto) 5.2 10 ^3/uL (1.6-8.6); Neutrophils % (auto) 60.1 % (37.0-80.0); Nucleated Red Blood Cells % 0.1 %; Red Blood Cells 5.85 10^6/uL (4.0-5.20); White Blood Cell 8.7 10^3/uL (4.4-10.8)
[2023-05-26 12:16] LABS: Alanine Aminotransferase 48 U/L (7-40); Albumin 5.5 g/dL (3.2-4.8); Alkaline Phosphatase 124 U/L (46-116); Anion Gap 8 (5-15); Aspartate Aminotransferase 38 U/L (13-40); Calcium 10.1 mg/dL (8.7-10.4); Carbon Dioxide 22 mmol/L (20-30); Chloride 108 mmol/L (98-107); Glucose 110 mg/dL (74-106); Potassium 3.6 mmol/L (3.5-5.1); Sodium 138 mmol/L (136-145)
[2023-05-26 12:17] LABS: Bilirubin, Total 0.4 mg/dL (0.2-1.0); Total Protein 8.8 g/dL (5.7-8.2)
[2023-05-26 12:19] LABS: BUN/Creatinine Ratio 5.2 (10.0-20.0); Blood Urea Nitrogen < 5 mg/dL (9-23)
[2023-05-26] MEDS ORDERED: amLODIPine BESYLATE 5 MG TAB PO ONE (12:45)
[2023-05-26 13:12] LABS: INR 0.96 (0.9-1.15); Prothrombin Time 10.1 sec (9.3-11.8)
[2023-05-26] MEDS ORDERED: ASPirin-EC 81 mg tab PO ONE (13:15)
[2023-05-26 13:19] LABS: Lipase 51 U/L (12-53)
[2023-05-26 14:05] LABS: Platelet Estimate Adequate
[2023-05-26 14:07] LABS: RBC Morphology Normal
[2023-05-27] MEDS ORDERED: NITROGLYCERIN 0.4 MG SL TAB SL PRN (00:15)
[2023-05-27] MEDS ORDERED: ONDANSETRON HCL 4 MG/2 ML VIAL IV PRN (00:15)
[2023-05-27] MEDS ORDERED: MORPHINE SULFATE INJ 2 MG/ml SYRG IV PRN (00:15)
[2023-05-27] MEDS ORDERED: ACETAMINOPHEN 325 MG TAB PO PRN (00:15)
[2023-05-27] MEDS: HYDROcodone-ACET 5/325MG TAB PO PRN ×2 (02:56→09:22)
[2023-05-27] MEDS ORDERED: hydrALAZINE HCL 20 MG/ML VL IV ONE (05:30)
[2023-05-27 09:03] VITALS: O2SAT 98
[2023-05-27] MEDS: hydrALAZINE HCL 20 MG/ML VL IV PRN (09:23)
[2023-05-27] MEDS: ASPirin 81 mg TAB PO SCH (10:32)
[2023-05-27] MEDS: FUROSEMIDE 20 MG TAB PO SCH (10:32)
[2023-05-27] MEDS: hydrALAZINE HCL 25 MG TAB PO SCH ×2 (10:32→22:00)
[2023-05-27] MEDS: NIFEdipine ER 30 MG TAB PO SCH (10:33)
[2023-05-27 16:30] VITALS: BP 143/78; PULSE 55; RESP 17; TEMP 97.7; O2SAT 97
[2023-05-27 20:00] VITALS: BP 172/75; PULSE 84; PULSE 88; RESP 18; TEMP 98; O2SAT 95
[2023-05-27] MEDS ORDERED: ATORVASTATIN 20 MG TAB PO SCH (22:00)
[2023-05-27 23:00] VITALS: BP 148/73
[2023-05-28] MEDS: HYDROcodone-ACET 5/325MG TAB PO PRN ×3 (02:49→14:08)
[2023-05-28 02:59] VITALS: BP 172/75; PULSE 88; RESP 20; TEMP 98; O2SAT 92
[2023-05-28 05:46] VITALS: BP 148/73; PULSE 82; PULSE 88; RESP 17; RESP 18; TEMP 98.8; O2SAT 93
[2023-05-28] MEDS: hydrALAZINE HCL 20 MG/ML VL IV PRN (06:27)
[2023-05-28 09:00] VITALS: BP 146/77; PULSE 91; RESP 16; TEMP 98.6; O2SAT 98
[2023-05-28] MEDS: FUROSEMIDE 20 MG TAB PO SCH (09:48)
[2023-05-28] MEDS: ASPirin 81 mg TAB PO SCH (09:48)
[2023-05-28] MEDS: NIFEdipine ER 30 MG TAB PO SCH (09:49)
[2023-05-28] MEDS: hydrALAZINE HCL 25 MG TAB PO SCH (09:49)
[2023-05-28] MEDS ORDERED: METOPROLOL SUCCINATE XL 50 MG TAB PO SCH (10:00)
[2023-05-28 10:29] LABS: Anion Gap 8 (5-15); Calcium 9.2 mg/dL (8.5-10.1); Carbon Dioxide 26 mmol/L (20-30); Chloride 105 mmol/L (98-107); Potassium 3.4 mmol/L (3.5-5.1); Sodium 139 mmol/L (136-145)
[2023-05-28 10:34] LABS: BUN/Creatinine Ratio 8.7 (10.0-20.0); Blood Urea Nitrogen 9 mg/dL (9-23)
[2023-05-28 10:41] LABS: Glucose 299 mg/dL (74-106)
[2023-05-28] MEDS ORDERED: POTASSIUM EFFERVESENT TAB 25 MEQ PO ONE (14:30)
[2023-05-28 16:03] VITALS: BP 146/77; PULSE 95
== END 2023-05-28 18:58 | disposition home or self-care (01) | DRG 203 ==
LOC: ER 08:34 → EDBD 08:34 → TELE 05-27 00:20 → TELE-CENTR 05-27 00:20
PROVIDERS: ADMIT Nurse Practitioner; ATTEND Nurse Practitioner Acute Care
PROC: 4B02XSZ Measurement of Cardiac Pacemaker, External Approach (ICD-10-PCS; principal; 2023-05-28)
DX: R07.89 Other chest pain (principal); I13.0 Hypertensive heart and chronic kidney disease with heart failure and stage 1 through stage 4 chronic kidney disease, or unspecified chronic kidney disease; I38 Endocarditis, valve unspecified; E11.22 Type 2 diabetes mellitus with diabetic chronic kidney disease; I50.32 Chronic diastolic (congestive) heart failure; I48.91 Unspecified atrial fibrillation; E78.5 Hyperlipidemia, unspecified; F17.210 Nicotine dependence, cigarettes, uncomplicated; I35.1 Nonrheumatic aortic (valve) insufficiency; N18.9 Chronic kidney disease, unspecified; Z79.899 Other long term (current) drug therapy; Z82.3 Family history of stroke; Z82.49 Family history of ischemic heart disease and other diseases of the circulatory system; Z88.5 Allergy status to narcotic agent; Z83.3 Family history of diabetes mellitus; Z95.0 Presence of cardiac pacemaker; I69.354 Hemiplegia and hemiparesis following cerebral infarction affecting left non-dominant side
CPT/HCPCS: 36415; 71045; 71275; 80048; 80053; 83690; 84484; 85025; 85379; 85610; 87081; 93005; 93970; 96374; 96376; G0378

== ENCOUNTER 2023-08-08 13:32 | Inpatient (IN) | payer OTHER ==
[~2023-08-08] VITALS: Ht 170.2 cm; Wt 69.0 kg
[~2023-08-08 13:32] MED LIST changes: -DOX100T PO
[2023-08-08 14:53] VITALS: PULSE 70; RESP 22
[2023-08-08] MEDS ORDERED: ONDANSETRON HCL 4 MG/2 ML VIAL IV ONE (16:15)
[2023-08-08] MEDS ORDERED: HYDROmorphone HCL 2 MG/ML VL/or syr IV ONE (16:15)
[2023-08-08] MEDS ORDERED: NITROGLYCERIN 0.4 MG SL TAB SL PRN (17:45)
[2023-08-08] MEDS ORDERED: DEXTROSE (50%) 50ML SYRG IV PRN (17:45)
[2023-08-08] MEDS ORDERED: ONDANSETRON HCL 4 MG/2 ML VIAL IV PRN (17:45)
[2023-08-08] MEDS ORDERED: ACETAMINOPHEN 325 MG TAB PO PRN (17:45)
[2023-08-08] MEDS ORDERED: ROSU1TAB14 PO (17:57)
[2023-08-08] MEDS ORDERED: APIX5TAB PO (17:57)
[2023-08-08] MEDS ORDERED: GABA-1250 PO (17:57)
[2023-08-08] MEDS ORDERED: AMLO1TAB23 PO (17:57)
[2023-08-08] MEDS ORDERED: HYDR-4297 PO (17:57)
[2023-08-08] MEDS ORDERED: CLON0.1T PO (17:57)
[2023-08-08 18:32] LABS: Chloride 115 mmol/L (98-107); Potassium 3.8 mmol/L (3.5-5.1); Sodium 144 mmol/L (136-145)
[2023-08-08 18:33] LABS: Anion Gap 8 (5-15); Carbon Dioxide 21 mmol/L (20-30)
[2023-08-08 18:38] LABS: BUN/Creatinine Ratio 31.4 (10.0-20.0); Blood Urea Nitrogen 32 mg/dL (9-23); Glucose 97 mg/dL (74-106)
[2023-08-08 18:44] LABS: Basophils # (auto) 0.1 10 ^3/uL (0-0.2); Basophils % (auto) 0.9 % (0.0-2.0); Eosinophils # (auto) 0 10 ^3/uL (0-0.8); Eosinophils % (auto) 0.6 % (0.0-7.0); Hematocrit 35.9 % (36.0-46.0); Hemoglobin 11.6 g/dL (12.2-16.2); Lymphocytes # (auto) 2.3 10 ^3/uL (0.4-5.4); Lymphocytes % (auto) 35.7 % (10.0-50.0); Mean Corpuscular Hemoglobin 28.2 pg (28.0-32.0); Mean Corpuscular Hgb Conc. 32.4 g/dL (32.0-36.0); Mean Corpuscular Volume 87.2 fL (80.0-100.0); Monocytes # (auto) 0.3 10 ^3/uL (0-1.3); Monocytes % (auto) 4.6 % (0.0-12.0); Neutrophils # (auto) 3.7 10 ^3/uL (1.6-8.6); Neutrophils % (auto) 58.2 % (37.0-80.0); Red Blood Cells 4.12 10^6/uL (4.0-5.20); Red Cell Distribution Width 14.9 % (11.8-14.3); White Blood Cell 6.4 10^3/uL (4.4-10.8)
[2023-08-08 20:10] VITALS: PULSE 76; RESP 20; O2SAT 93
[2023-08-08] MEDS ORDERED: ATORVASTATIN 20 MG TAB PO SCH (22:00)
[2023-08-08] MEDS: cloNIDine HCL 0.1 MG TAB PO SCH (22:16)
[2023-08-08] MEDS: hydrALAZINE HCL 25 MG TAB PO SCH (22:16)
[2023-08-08] MEDS: APIXABAN 5 MG TAB PO SCH (22:16)
[2023-08-08] MEDS: ATORVASTATIN 20 MG TAB PO SCH (22:16)
[2023-08-08] MEDS: HYDROcodone-ACET 5/325MG TAB PO PRN (22:17)
[2023-08-08] MEDS: ACCU-CHEK COMFORT CURVE STRIP VI SCH (22:26)
[2023-08-08] MEDS: InsuLIN REG 1unit/0.01ml Soln (100units/ml) SC SCH (22:26)
[2023-08-08 23:15] VITALS: BP 112/63; PULSE 65; RESP 18; TEMP 98.7; O2SAT 97
[2023-08-09] VITALS (7 sets, daily range): BP systolic 113–175; BP diastolic 52–64; PULSE 63–70; RESP 16–18; TEMP 97.8–98.9; O2SAT 95–100
[2023-08-09 03:32] LABS: Urine Bacteria NONE SEEN /hpf (None Seen); Urine Blood Negative /uL (Negative); Urine Clarity Clear (Clear); Urine Hyaline Cast FEW /lpf (0 - 2); Urine Protein, UAD 1+ (Negative); Urine Specific Gravity 1.017 (1.001-1.035); Urine Urobilinogen Normal (Negative); Urine WBC 4 /hpf (0 - 5)
[2023-08-09 03:33] LABS: Urine Color Straw (Yellow)
[2023-08-09] MEDS: ACCU-CHEK COMFORT CURVE STRIP VI SCH ×4 (05:24→22:01)
[2023-08-09] MEDS: InsuLIN REG 1unit/0.01ml Soln (100units/ml) SC SCH ×4 (05:24→22:03)
[2023-08-09] MEDS: HYDROcodone-ACET 5/325MG TAB PO PRN ×4 (05:30→22:03)
[2023-08-09 07:01] LABS: Basophils # (auto) 0 10 ^3/uL (0-0.2); Basophils % (auto) 0.9 % (0.0-2.0); Eosinophils # (auto) 0 10 ^3/uL (0-0.8); Hematocrit 40.4 % (36.0-46.0); Hemoglobin 13.5 g/dL (12.2-16.2); Lymphocytes # (auto) 1.8 10 ^3/uL (0.4-5.4); Lymphocytes % (auto) 40.4 % (10.0-50.0); Mean Corpuscular Hemoglobin 29.3 pg (28.0-32.0); Mean Corpuscular Hgb Conc. 33.4 g/dL (32.0-36.0); Mean Corpuscular Volume 87.7 fL (80.0-100.0); Monocytes # (auto) 0.3 10 ^3/uL (0-1.3); Monocytes % (auto) 6.5 % (0.0-12.0); Neutrophils # (auto) 2.3 10 ^3/uL (1.6-8.6); Neutrophils % (auto) 51.2 % (37.0-80.0); Nucleated Red Blood Cells % 0.2 %; Red Blood Cells 4.61 10^6/uL (4.0-5.20); Red Cell Distribution Width 14.9 % (11.8-14.3); White Blood Cell 4.5 10^3/uL (4.4-10.8)
[2023-08-09 07:12] LABS: Alanine Aminotransferase 40 U/L (7-40); Albumin 4.1 g/dL (3.2-4.8); Alkaline Phosphatase 89 U/L (46-116); Anion Gap 7 (5-15); Aspartate Aminotransferase 33 U/L (13-40); BUN/Creatinine Ratio 17.9 (10.0-20.0); Bilirubin, Total 0.6 mg/dL (0.2-1.0); Blood Urea Nitrogen 17 mg/dL (9-23); Calcium 9.5 mg/dL (8.5-10.1); Carbon Dioxide 21 mmol/L (20-30); Chloride 114 mmol/L (98-107); Glucose 77 mg/dL (74-106); Potassium 3.7 mmol/L (3.5-5.1); Sodium 142 mmol/L (136-145); Total Protein 6.7 g/dL (5.7-8.2)
[2023-08-09] MEDS: PANTOPRAZOLE 40 MG TAB PO SCH (09:06)
[2023-08-09] MEDS: GABAPENTIN 300 MG CAP PO SCH (09:06)
[2023-08-09] MEDS: APIXABAN 5 MG TAB PO SCH ×2 (09:07→22:09)
[2023-08-09] MEDS: amLODIPine BESYLATE 5 MG TAB PO SCH (09:07)
[2023-08-09] MEDS: hydrALAZINE HCL 25 MG TAB PO SCH ×2 (09:07→22:01)
[2023-08-09] MEDS: cloNIDine HCL 0.1 MG TAB PO SCH ×2 (09:07→22:01)
[2023-08-09] MEDS: DOCUSATE SOD 100 MG CAP PO PRN (16:10)
[2023-08-09] MEDS: cloNIDine HCL 0.1 MG TAB PO PRN (16:11)
[2023-08-09] MEDS: ATORVASTATIN 20 MG TAB PO SCH (22:00)
[2023-08-10 06:00] VITALS: BP 162/66; PULSE 65; RESP 16; TEMP 98.5; O2SAT 98
[2023-08-10] MEDS: InsuLIN REG 1unit/0.01ml Soln (100units/ml) SC SCH ×2 (06:10→11:45)
[2023-08-10] MEDS: ACCU-CHEK COMFORT CURVE STRIP VI SCH ×2 (06:10→11:44)
[2023-08-10] MEDS: HYDROcodone-ACET 5/325MG TAB PO PRN (06:11)
[2023-08-10] MEDS: DOCUSATE SOD 100 MG CAP PO PRN (06:11)
[2023-08-10] MEDS: cloNIDine HCL 0.1 MG TAB PO PRN (06:12)
[2023-08-10 08:00] VITALS: BP 149/63; PULSE 65; RESP 16; TEMP 98.2; O2SAT 98
[2023-08-10 09:00] VITALS: BP 149/63; PULSE 65; RESP 16; TEMP 98.2; O2SAT 98
[2023-08-10] MEDS: GABAPENTIN 300 MG CAP PO SCH (09:10)
[2023-08-10] MEDS: PANTOPRAZOLE 40 MG TAB PO SCH (09:10)
[2023-08-10] MEDS: APIXABAN 5 MG TAB PO SCH (09:11)
[2023-08-10] MEDS: cloNIDine HCL 0.1 MG TAB PO SCH (09:11)
[2023-08-10] MEDS: amLODIPine BESYLATE 5 MG TAB PO SCH (09:12)
[2023-08-10] MEDS: hydrALAZINE HCL 25 MG TAB PO SCH (09:12)
[2023-08-10] MEDS ORDERED: HYDR-4902 PO (09:26)
[2023-08-10 12:20] VITALS: BP 149/63; PULSE 65; RESP 16; TEMP 98.2; O2SAT 98
== END 2023-08-10 14:40 | disposition home or self-care (01) | DRG 351 ==
LOC: ER 13:32 → EDBD 13:32 → EDUNIT# 13:32 → TELE 17:57 → TELE-CENTR 17:57
PROVIDERS: ADMIT Nurse Practitioner Family; ATTEND Family Medicine
DX: M25.552 Pain in left hip (principal); E11.00 Type 2 diabetes mellitus with hyperosmolarity without nonketotic hyperglycemic-hyperosmolar coma (NKHHC); E78.00 Pure hypercholesterolemia, unspecified; R55 Syncope and collapse; I10 Essential (primary) hypertension; I25.10 Atherosclerotic heart disease of native coronary artery without angina pectoris; E78.5 Hyperlipidemia, unspecified; F17.210 Nicotine dependence, cigarettes, uncomplicated; Z95.0 Presence of cardiac pacemaker; Z79.01 Long term (current) use of anticoagulants; I25.2 Old myocardial infarction; Z82.49 Family history of ischemic heart disease and other diseases of the circulatory system; Z86.73 Personal history of transient ischemic attack (TIA), and cerebral infarction without residual deficits; Z95.5 Presence of coronary angioplasty implant and graft
CPT/HCPCS: 36415; 73030; 73502; 73560; 80048; 80053; 81001; 82962; 85025; 97110; 97116; 97163; 97530; G0378; J1815; J2405